=== PATIENT | female | born 1980 ===

== ENCOUNTER → 2024-07-18 | Outpatient (CLI) | payer OTHER ==
[~2024-07-18] MED LIST: CODACE30; ERYT.5TO LEFTEYE; HYDACE5 PO; PENVK500 PO; RXPENVK250 PO
[2024-07-18 17:47] LABS: Creatinine, Urine Random 88.2 mg/dL (27.00-270.00)
[2024-07-18 17:50] LABS: Microalb/Creat Ratio UR, Rand 23.243 mg/g (0.000-30.000); Microalbumin, Random Urine 20.5 mg/L (0.000-20.000)
== END ==
LOC: LAB 12:42 → LAB SHORT 12:42
PROVIDERS: Physician Assistant
DX: E11.9 Type 2 diabetes mellitus without complications (principal)
CPT/HCPCS: 82043; 82570